=== PATIENT | male | born 1960 | race Caucasian/White ===

== ENCOUNTER 2016-11-22 10:27 | Emergency (ER) | payer MEDICARE ==
[2016-11-22 11:08] LABS: BASOPHILS 0.6 % (0-2); EOSINOPHILS 1.4 % (0-7); HEMATOCRIT 45.5 % (42.0-54.0); HEMOGLOBIN 16.4 g/dL (13.5-17.5); IMMATURE GRANULOCYTES 0.5 % (0-5); MCH 31.2 pg (26.0-34.0); MCV 86.5 fL (80.0-100.0); MONOCYTES 10.5 % (2-11); PLATELET COUNT 202 10x3/uL (130-400); RBC 5.26 10x6/uL (4.20-6.10); RDW 13.2 % (11.5-14.5); WBC 6.7 10x3/uL (4.8-10.8)
[2016-11-22 11:12] LABS: ALBUMIN 3.6 g/dL (3.4-5.0); ALKALINE PHOSPHATASE 103 U/L (46-116); ALT (SGPT) 53 U/L (10-68); BILIRUBIN - TOTAL 1.12 mg/dL (0.2-1.3); CALC OSMOLALITY 278 mosm/kg (275-300); CALCIUM 8.8 mg/dL (8.5-10.1); CARBON DIOXIDE 28.3 mmol/L (21.0-32.0); CHLORIDE - SERUM 104 mmol/L (98-107); CREATININE - SERUM 1.1 mg/dL (0.6-1.3); GLUCOSE 98 mg/dL (74-106); POTASSIUM - SERUM 3.9 mmol/L (3.5-5.1); PROTEIN - SERUM 7.1 g/dL (6.4-8.2); SODIUM 140 mmol/L (136-145); UREA NITROGEN 13 mg/dL (7-18); eGFR NON AFRICAN AMERICAN 73 mL/min (90-120)
[2016-11-22 11:23] LABS: CKMB 1.2 U/L (0.0-3.6); CREATINE KINASE 203 UL (21-232)
[2016-11-22 11:30] LABS: TROPONIN-I < 0.017 ng/mL (0.000-0.060)
== END 2016-11-22 12:36 | disposition home or self-care (01) ==
LOC: D.ER 10:27
PROVIDERS: Emergency Medicine
DX: R07.9 Chest pain, unspecified (principal)

== ENCOUNTER 2016-12-24 10:53 | Outpatient (CLI) | payer MEDICARE ==
--- NOTE | ~2016-12-24 | HEMODYNAMI ---
PATIENT:MARANDA GRANT BRANDEE MEDICAL RECORD: [id number] : 56 LOCATION:MINI ADMISSION DATE: 12/24/16 Generatedon:12/24/201612:33 Patient name: MARANDA GRANT Patient #: [id number] SSN: DO B: 1960 Date of study: 12/24/2016 Page: Of Hemodynamic Procedure Report Patient Data Patient Demographics Procedure consent was obtained First Name: MARANDA Gender: Male Last Name: RUDY : 1960 [facility] Initial: BRANDEE Age: 56 year(s) Patient #: [id number] Race: Additional ID: [id number] Contact details Address: [address] [place] [address] State: [place] City: [facility] Zip code: [address] Past Medical History Allergies: No known allergies Admission Admission Data Admission Date: 12/24/2016 Admission Time: 10:53 Arrival Date: 12/24/2016 Arrival Time: 13:00 Admit Source: Other Insurance Payor: Medicare Height (in.): 67 BSA: 2.1 (m2) Height (cm.): 170.18 BMI: 34.14 (kg/m2) Weight (lbs.): 218 Weight (kg.): 98.88 Lab Results Lab Result Date: 12/24/2016 Lab Result Time: 0:00 Biochemistry Name Units Result Min Max BUN mg/dl 12 --(-*--)-- 7 18 Creatinine mg/dl 1.1 --(--*-)-- 0.6 1.3 Procedure Procedure Types Cath Procedure Diagnostic Procedure C [facility] w/Coronaries Miscellaneous Procedures Moderate Sedation up to 15 minutes Procedure Description Procedure Date Procedure Date: 12/24/2016 Procedure Start Time: 12:15 Procedure End Time: 12:30 Procedure Staff Name Function Prem Vargas MD Performing Physician Isabelle Moreno RT Scrub Jass Conte RN Nurse Massiel Lima RT Monitor Procedure Data Cath Procedure Fluoroscopy Diagnostic fluoroscopy Total fluoroscopy Time: 4.7 time: 4.7 min min Diagnostic fluoroscopy Total fluoroscopy dose: 644 dose: 644 mGy mGy Contrast Material Contrast Material Type Amount (ml) Isovue 300 64 Entry Location Entry Primary Successful Side Size Upsize Upsize Entry Closure Ballard ccessful Closure Location (Fr) 1 (Fr) 2 (Fr) Remarks Device Remarks Radial Right 6 Fr Mechanical tr artery Short Compression Femoral Right 5 Fr Exoseal artery Estimated blood loss: 10 ml Diagnostic catheters Device Type Used For End Catheter Placement Diagnostic Terumo 5Fr Procedure Fulton 110cm catheter Cordis 5Fr JL 4.0 Procedure Catheter (MP) Cordis 5Fr 3DRC Catheter Procedure (MP) Procedure Complications No complications Procedure Medications Medication Administration Route Dosage 0.9% NaCl I.V. 100 ml/hr Oxygen NC 2 l/min Heparin Flush Bag added to field 2 bags (1000units/500ml NS) Radial Cocktail added to field 1 syringe (Verapomil 2mg/Nitro 400mcg/Heparin 1500units) Versed I.V. 2 mg Fentanyl I.V. 100 mcg Versed I.V. 1 mg Radial Cocktail I.A. 1 syringe (Verapomil 2mg/Nitro 400mcg/Heparin 1500units) Versed I.V. 1 mg Hemodynamics Rest BSA: 2.1 (m2) O2 Consumption: Estimated: 248.31 (ml/min) O2 Consumption indexed: Estimated:118.24 (ml/min/m) Heart Rate: 71 (bpm) Pressure Samples Time Site Value (mmHg) Purpose Heart Use Rate(bpm) 12:19 AO 104/14(47) Snapshot 91 12:19 LV 98/9,11 Snapshot 86 12:20 LV 45/-35,-5 EDP 93 Gradients Valve Time Site Site Mean SEP/DFP Peak To Heart Use 1 2 (mmHg) (sec/min) Peak Rate (mmHg) (bpm) Aortic 12:20 LV AO 94 Snapshots Pre Cath Intra NCS Post Cath Vital Signs Time Heart Resp SPO2 etCO2 NIBP (mmHg) Rhythm Pain Sedation Rate (ipm) (%) (mmHg) Status Level (bpm) 12:03:22 66 18 100 34.7 141/90(120) NSR 0 (11) 10(A) , No pain 12:07:38 64 17 100 31.7 137/85(120) NSR 0 (11) 10(A) , No pain 12:11:52 69 18 100 35.5 142/83(117) NSR 0 (11) 10(A) , No pain 12:16:06 98 14 95 0 125/84(98) NSR 0 (11) 10(A) , No pain 12:20:12 92 15 95 0 116/72(100) NSR 0 (11) 10(A) , No pain 12:24:22 77 16 96 34.7 119/74(100) NSR 0 (11) 10(A) , No pain 12:28:30 89 13 95 35.5 114/73(98) NSR 0 (11) 10(A) , No pain Medications Time Medication Route Dose Verified Delivered Reason Notes Effectiveness by by 12:04:33 0.9% NaCl I.V. 100 Ollie Ollie Per ml/hr Shalini Loya physician RN RN 12:04:51 Oxygen NC 2 l/min Ollie Ollie Per Shalini Loya physician RN RN 12:05:05 Heparin Flush added 2 bags Ollie Ollie used for Bag to Shalini Loya procedure (1000units/500ml field YUVAL BARAKAT NS) 12:05:35 Radial Cocktail added 1 Ollie Ollie for (Verapomil to syringe Shalini Loya vasodilation 2mg/Nitro field YUVAL BARAKAT 400mcg/Heparin 1500units) 12:14:14 Versed I.V. 2 mg Ollie Ollie for sedation Shalini Loya RN, RN 12:14:25 Fentanyl I.V. 100 mcg Ollie Ollie for sedation Shalini Loya RN, RN 12:15:59 Versed I.V. 1 mg Ollie Ollie for sedation Shalini Loya RN, RN 12:16:31 Radial Cocktail I.A. 1 Ollie Prem for (Verapomil syringe Shalini James John vasodilation 2mg/Nitro YUVAL MUNIZ 400mcg/Heparin 1500units) 12:28:05 Versed I.V. 1 mg Ollie Ollie for sedation Shalini Loya RN lab director Log Time Note 11:42:19 Informed consent obtained and on chart 11:42:22 Diagnostic Cath Status : Elective 11:44:16 Admit Source: Other 11:44:21 Patient Height : 67 inches 11:44:32 Patient Weight : 218 lbs 11:44:32 Insurance Payor : Medicare 11:44:35 Arrival Date: 12/24/2016 1:00:00 PM 11:46:51 Lab Result : Creatinine 1.1 mg/dl 11:46:51 Lab Result : BUN 12 mg/dl 12:02:19 Vital chart was started 12:04:33 0.9% NaCl 100 ml/hr I.V. was administered by Ollie Loya RN; Per physician; 12:04:51 Oxygen 2 l/min NC was administered by Ollie Loya RN; Per physician; 12:05:05 Heparin Flush Bag (1000units/500ml NS) 2 bags added to field was administered by Ollie Loya RN; used for procedure; 12:05:35 Radial Cocktail (Verapomil 2mg/Nitro 400mcg/Heparin 1500units) 1 syringe added to field was administered by Ollie Loya RN; for vasodilation; 12:08:37 Jass Conte RN sent for patient. Start room use. 12:08:38 Time tracking: Regular hours 12:08:44 Plan of Care:Hemodynamics will remain stable., Cardiac rhythm will remain stable., Comfort level will be maintained., Respiratory function will remain adequate., Patient/ family verbilizes understanding of procedure., Procedure tolerated without complication., Recovers from procedure without complications.. 12:08:58 Patient received from Pre/Post Procedure Room to [facility] 2 Alert and oriented. Tansferred to table in Supine position. 12:09:04 Warm blankets applied, and valentín hugger turned on for patient comfort. 12:09:07 Correct patient and procedure confirmed by team. 12:09:10 ECG and BP/O2 sat monitors applied to patient. 12:09:11 Baseline sample Acquired. 12:09:15 Rhythm: sinus rhythm 12:09:17 Full Disclosure recording started 12:09:33 H&P Date Dictated: 11/25/2016 Within 30 days and on chart., H&P Addendum completed by physician on day of procedure. (MUST COMPLETE FOR ALL OUTPATIENTS). 12:09:34 Pre-procedure instructions explained to patient. 12:09:38 Family in waiting room. 12:09:39 Patient NPO since Midnight. 12:09:50 Patient allergic to No known allergies 12:10:05 Is patient on blood thinner?No 12:10:08 Patient diabetic? No. 12:10:13 Snore? Yes 12:10:15 Sleep apnea? No 12:10:19 Dentures? No ? 12:10:24 Patient pain scale 0/10 ?. 12:10:29 IV patent on arrival in left hand with 0.9% NaCl at [facility]. 12:10:31 Lab results completed and on chart. 12:10:35 Right Radial & Right Groin area was prepped with chlora-prep and draped in sterile fashion 12:10:36 Alarms reviewed by R. N. 12:10:36 Sharps counted by scrub and verified by R.N. 12:10:37 Physician paged 12:10:39 Physician arrived 12:10:40 --------ALL STOP TIME OUT------ 12:10:40 Final Timeout: patient, procedure, and site verified with staff and physician. All members of the team are in agreement. 12:10:44 Right Radial & Right Groin site verified by team. 12:10:49 Sedation plan: IV Moderate Sedation Versed, Fentanyl 12:10:57 Use device set Radial Dx 12:11:01 Acist Syringe opened to sterile field. 12:11:02 Medline Cath Pack opened to sterile field. 12:11:02 Bag Decanter opened to sterile field. 12:11:03 Terumo 6Fr Slender Glidesheath opened to sterile field. 12:11:03 St Artie 260cm J .035 wire opened to sterile field. 12:11:03 Acist Hand Control opened to sterile field. 12:11:04 Acist Manifold opened to sterile field. 12:11:04 Tegaderm 4 x 4 opened to sterile field. 12:11:05 MBrace Wrist Support opened to sterile field. 12:14:14 Versed 2 mg I.V. was administered by Ollie Loya RN; for sedation; 12:14:25 Fentanyl 100 mcg I.V. was administered by Ollie Loya RN; for sedation; 12:14:47 Zero performed for pressure channel P1 12:14:56 Procedure started. 12:15:09 Local anesthetic to right radial artery with Lidocaine 2% by Prem Vargas MD.INITIAL ACCESS ONLY 12:15:19 A 6 Fr Short sheath was inserted into the Right Radial artery 12:15:59 Versed 1 mg I.V. was administered by Ollie Loya RN; for sedation; 12:16:09 A Diagnostic Terumo 5Fr Fulton 110cm catheter was advanced over the wire and used for Procedure. 12:16:31 Radial Cocktail (Verapomil 2mg/Nitro 400mcg/Heparin 1500units) 1 syringe I.A. was administered by Prem Vargas MD; for vasodilation; 12:18:53 Terumo ANGLE 260cm glide wire opened to sterile field. 12:19:50 LV angiography performed. 12:21:49 Use device set Multipack Set 12:22:07 Catheter removed. 12:22:26 Local anesthetic to right femoral artery with Lidocaine 2% by Prem Vargas MD.ADDITIONAL ACCESS 12:22:36 A 5 Fr sheath was inserted into the Right Femoral artery 12:22:43 Terumo 5Fr Buffalo Sheath opened to sterile field. 12:22:44 Diagnostic Infinity 5Fr Multipack catheter opened to sterile field. 12:23:26 A Cordis 5Fr JL 4.0 Catheter (MP) was advanced over the wire and used for Procedure. 12:24:50 Catheter removed. 12:25:01 A Cordis 5Fr 3DRC Catheter (MP) was advanced over the wire and used for Procedure. 12:26:36 Terumo TR Band Standard opened to sterile field. 12:26:37 Cordis 5Fr Exoseal opened to sterile field. 12:26:43 Catheter removed. 12:27:01 Sheath removed intact; hemostasis achieved with Exoseal to the Right Femoral artery. 12:27:17 Sheath removed intact; hemostasis achieved with Mechanical Compression to the Right Radial artery. 12:27:27 Procedure ended.(Physican Out) 12:27:38 Fluoroscopy time 04.70 minutes. 12::43 Fluoroscopy dose: 644 mGy 12:27:43 Flurop Dose total: 644 12:27:47 Contrast amount:Isovue 300 64ml. 12:28:05 Versed 1 mg I.V. was administered by Ollie Loya RN; for sedation; 12:29:25 Sharps counted by scrub and verified by R.N. 12:29:31 TR band inflated with 10cc of air. 12::33 Insertion/operative site no bleeding no hematoma. 12:29:38 Post right femoral artery:stable 12:29:40 Post Procedure Pulses reassessed and unchanged 12::45 Post-procedure physical assessment completed. ASA score P 2 - A patient with mild systemic disease as per Prem Vargas MD. 12:29:49 Post procedure rhythm: unchanged. 12:29:51 Estimated blood loss: 10 ml 12:30:04 Procedure type changed to Cath procedure, Diagnostic procedure, LHC, LHC w/Coronaries, Miscellaneous Procedures, Moderate Sedation up to 15 minutes 12:30:05 Procedure and supply charges have been captured, reviewed, submitted and are correct. 12:30:31 Procedure Complication : No complications 12:30:34 Vital chart was stopped 12:30:35 See physician's report for complete and final results. 12:30:37 Report given to Pre/Post Procedure Room. 12:30:39 Patient transfered to Pre/Post Procedure Room with Stretcher. 12:30:41 Procedure ended. 12:30:41 Full Disclosure recording stopped 12::45 End room use (Document Last) 12:32:01 End room use (Document Last) Device Usage Item Name Manufacture Quantity Catalog Hospital Part Current Minimal Lot# / Number Charge Number Stock Stock Serial# Code Acist Acist 1 48982 653164 296606 076604 20 Syringe Medical [employer] Inc Medline Cardinal 1 [id number] 767260 68941 339896 5 Cath Pack Health Bag Microtek 1 2001S 782101 62475 343209 5 [employer] Terumo 6Fr Terumo 1 [id number] 292557 974820 756772 [address] Artie St Artie 1 014035 121728 386644 140268 30 260cm J .035 wire Acist Hand Acist 1 94760 669701 604986 347295 5 Control Medical Systems Inc Acist Acist 1 04436 948958 880193 823082 5 Manifold Medical Systems Inc Tegaderm 4 3M 1 1626W 925017 355393 198339 5 x 4 MBrace Advanced 1 140-0250-00 486333 35809 617576 5 Wrist Vascular Support Dynamics Diagnostic Terumo 1 40-2318 862073 563886 595681 5 Terumo 5Fr Fulton 110cm catheter Terumo Terumo 1 [id number] 606692 116497 336858 5 ANGLE 260cm glide wire Terumo 5Fr Terumo 1 QOW101 872413 302310 933531 40 Buffalo Sheath Diagnostic Cardinal 1 [id number] 713352 82691 166372 30 Infinity Health 5Fr Multipack catheter Cordis 5Fr Cardinal 1 053576 5 JL 4.0 Health Catheter (MP) Cordis 5Fr Cardinal 1 070009 5 3DRC Health Catheter (MP) Terumo TR Terumo 1 [id number] 600251 550799 045243 40 Band Standard Cordis 5Fr Cardinal 1 EX500 054783 688195 350506 10 [facility] Signature Audit [place] Stage Time Signature Unsigned Intra-Procedure 12/24/2016 Massiel Lima 12:33:43 PM RT(R) Signatures Monitor : Massiel Lima Signature : RT Date : Time : [place] [id number] [place] [address]
[2016-12-24] MEDS ORDERED: CLARITIN-D1 TAB.SR . PO (11:10)
[2016-12-24] MEDS ORDERED: PRILOSEC10 M1 PO (11:11)
[2016-12-24 11:14] VITALS: BP 134/82; BMI 33.3
[2016-12-24 11:26] LABS: BASOPHILS 0.8 % (0-2); EOSINOPHILS 1.8 % (0-7); HEMATOCRIT 44.1 % (42.0-54.0); HEMOGLOBIN 15.8 g/dL (13.5-17.5); IMMATURE GRANULOCYTES 0.3 % (0-5); LYMPHOCYTES 22.2 % (15-50); MCH 30.9 pg (26.0-34.0); MCHC 35.8 g/dL (31.0-37.0); MCV 86.1 fL (80.0-100.0); MEAN PLATELET VOLUME 10.5 fL (7.4-10.4); NEUTROPHILS 63.9 % (40-80); PLATELET COUNT 203 10x3/uL (130-400); RBC 5.12 10x6/uL (4.20-6.10); RDW 12.7 % (11.5-14.5); WBC 7.4 10x3/uL (4.8-10.8)
[2016-12-24 11:35] LABS: ANION GAP 13.8 mmol/L (8-16); CALCIUM 8.6 mg/dL (8.5-10.1); CARBON DIOXIDE 27.9 mmol/L (21.0-32.0); CREATININE - SERUM 1.1 mg/dL (0.6-1.3); POTASSIUM - SERUM 3.7 mmol/L (3.5-5.1)
--- NOTE | 2016-12-24 13:16 | NUR ---
1305 LYING FLAT, 2L NC IN PLACE WHILE SLEEPING. NSR RATE 72 W NO C/O CHEST PAIN. PULSES PALP X4. R WRIST TR BAND C/D/I W NO HEMATOMA OR BLEEDING. R GROIN 5F EXOSEAL C/D/I W NO HEMOTOMA OR BLEEDING. AT BEDSIDE.
--- NOTE | 2016-12-24 14:06 | NUR ---
1400 ELEVATED HOB, 3CC AIR REMOVED FROM TR BAND R WRIST. WILL MONITOR FOR BLEEDING. EATING TURKEY SANDWICH AND SIPPING SODA. AT SIDE.
--- NOTE | 2016-12-24 14:06 | NUR ---
2500 TALKING WITH AT BEDSIDE. ROOM AIR, NSR W NO C/O CHEST PAIN. R WRIST AND R GROIN REMAIN C/D/I. DENIES NEEDS AT THIS TIME.
--- NOTE | 2016-12-24 14:16 | NUR ---
1CC AIR REMOVED FROM R WRIST TR BAND. PIV REMOVED FROM L FOREARM WITH BANDAID APPLIED. UP TO BEDSIDE TO DRESS WITH ASSIST FROM .
--- NOTE | 2016-12-24 14:34 | NUR ---
TR BAND WEANED, 2X2 AND TEGADERM APPLIED. BRACE RE-PLACED. AMBULATED TO BATHROOM TO VOID. R GROIN REMAINS C/D/I W NO HEMATOMA OR BLEEDING. D/C INSTRUCTIONS DISCUSSED WITH PATIENT AND AT BEDSIDE. WHEELED OUT VIA WHEELCHAIR BY CATH TEAM.
--- NOTE | 2016-12-28 13:30 | OP ---
PATIENT NAME: MARANDA GRANT MEDICAL RECORD: [id number] :56 LOCATION:D.CAT ADMISSION DATE: SURGEON: ESVIN LAO MD DATE OF OPERATION: 12/24/2016 PROCEDURE: Left heart catheterization, selective coronary angiography, and right femoral approach.. CATHETERS: A 5-Yemeni sheath, 5/4 left and right Martin, 5/4 pig. The procedure was well tolerated. The patient returned to edouard, sheath removed. ExoSeal device was placed. FINDINGS: Left ventriculography in 30-degree DALTON view: Normal wall motion, normal systolic function. CORONARY ANATOMY: LEFT MAIN: Left main is free of disease. LAD: Free of disease in the diagonal system. CIRCUMFLEX: Free of disease in the marginal system. RIGHT CORONARY ARTERY: Dominant artery, gives rise to PDA, free of disease. IMPRESSION: Normal systolic function. Normal coronary anatomy. TRANSINT:[id number] Voice Confirmation ID: [id number] DOCUMENT ID: [id number] ESVIN LAO MD at 1330 CC: [id number] DICTATION DATE: 12/24/16 1234 CREDIT UNION TELLER: 12/24/16 1254 DEP CLI 12/24/16 [facility] [address] [place] [address]
== END 2016-12-24 14:37 | disposition home or self-care (01) ==
LOC: D.CATH 10:53
PROVIDERS: Internal Medicine Interventional Cardiology
DX: I20.9 Angina pectoris, unspecified (principal); R94.30 Abnormal result of cardiovascular function study, unspecified; E78.5 Hyperlipidemia, unspecified; Z01.812 Encounter for preprocedural laboratory examination

== ENCOUNTER 2017-03-01 11:38 | Emergency (ER) | payer MEDICARE ==
[~2017-03-01 11:38] MED LIST: CLARITIN-D1 TAB.SR . PO; PRILOSEC10 M1 PO
== END 2017-03-01 15:05 ==
LOC: D.ER 11:38
DX: J20.9 Acute bronchitis, unspecified (principal); J06.9 Acute upper respiratory infection, unspecified

== ENCOUNTER 2017-07-02 13:48 | Emergency (ER) | payer MEDICARE | END 2017-07-02 17:09 | disposition home or self-care (01) | LOC: D.ER 13:48 | DX: L02.512 Cutaneous abscess of left hand (principal) ==

== ENCOUNTER 2018-02-11 13:11 | Day surgery (SDC) | payer MEDICARE ==
[~2018-02-11] VITALS: Ht 170.2 cm; Wt 95.5 kg
[2018-02-11 13:40] LABS: APPEARANCE CLEAR (CLEAR); BILIRUBIN NEGATIVE (NEGATIVE); COLOR YELLOW (YELLOW); GLUCOSE NEGATIVE (NEGATIVE); KETONE NEGATIVE (NEGATIVE); NITRITE NEGATIVE (NEGATIVE); PROTEIN NEGATIVE (NEGATIVE); SPECIFIC GRAVITY 1.005 (1.005-1.020); UROBILINOGEN NORMAL (NORMAL)
[2018-02-11 13:42] LABS: BASOPHILS 0.1 % (0-2); EOSINOPHILS 0.1 % (0-7); HEMATOCRIT 42.9 % (42.0-54.0); HEMOGLOBIN 15.8 g/dL (13.5-17.5); IMMATURE GRANULOCYTES 0.2 % (0-5); LYMPHOCYTES 4.3 % (15-50); MCH 31.5 pg (26.0-34.0); MCHC 36.8 g/dL (31.0-37.0); MCV 85.5 fL (80.0-100.0); MEAN PLATELET VOLUME 10.7 fL (7.4-10.4); MONOCYTES 9.7 % (2-11); NEUTROPHILS 85.6 % (40-80); PLATELET COUNT 178 10x3/uL (130-400); RBC 5.02 10x6/uL (4.20-6.10); RDW 13.1 % (11.5-14.5); WBC 17.7 10x3/uL (4.8-10.8)
[2018-02-11 13:59] LABS: ALBUMIN 3.7 g/dL (3.4-5.0); ANION GAP 14.2 mmol/L (8-16); BILIRUBIN - TOTAL 1.16 mg/dL (0.2-1.3); CALCIUM 8.5 mg/dL (8.5-10.1); CARBON DIOXIDE 24.4 mmol/L (21.0-32.0); CREATININE - SERUM 1.2 mg/dL (0.6-1.3); POTASSIUM - SERUM 3.6 mmol/L (3.5-5.1); PROTEIN - SERUM 6.9 g/dL (6.4-8.2)
[2018-02-11 17:24] VITALS: BP 114/63; Ht 170.2 cm; Wt 95.5 kg
[2018-02-11 20:28] VITALS: BP 107/71
[2018-02-11 23:54] VITALS: BP 116/68
[2018-02-12 04:32] VITALS: BP 104/52
[2018-02-12 09:00] VITALS: BP 112/67
[2018-02-12 12:30] VITALS: BP 113/70
[2018-02-12] MEDS ORDERED: NORCO 10-325 TA1 TAB PO (14:13)
[2018-02-12 16:17] VITALS: BP 105/63
[2018-02-12 20:27] VITALS: BP 112/65
[2018-02-12 23:49] VITALS: BP 117/70
[2018-02-13 04:16] VITALS: BP 149/56
--- NOTE | 2018-02-13 09:19 | OP ---
PATIENT NAME: MARANDA GRANT MEDICAL RECORD: [id number] :56 LOCATION:D.MS [id number] ADMISSION DATE:02/11/18 SURGEON: MATTHEW WHITESIDE MD DATE OF OPERATION: 02/12/2018 PREOPERATIVE DIAGNOSIS: Acute appendicitis with localized peritonitis. POSTOPERATIVE DIAGNOSIS: Acute appendicitis with localized peritonitis. PROCEDURE: Laparoscopic appendectomy. SURGEON: Matthew Whiteside MD REPORT OF PROCEDURE: The patient's abdomen was prepped and draped in sterile fashion. A cutdown was made in the midline just above the umbilicus. Electrocautery was used to dissect through the subcutaneous tissues. Vicryls #0 were placed in the fascia bilaterally and the fascia was incised with #15 blade. I then bluntly entered the peritoneal cavity, and with finger dissection, I took down some of the omental adhesions that were present to the anterior abdominal wall. A 12-mm Lainey trocar was then inserted and the abdomen was insufflated. Under direct visualization, a 5-mm trocar was placed in the left lower quadrant and another was placed in the suprapubic region. The patient's appendix was visualized and noted to be inflamed. There was no sign of any purulence and no signs of any gangrene or perforation. The appendix was very friable, especially on the fatty tissue. Everytime I tried to grab the fatty tissue, it would break, which led to some bleeding. I eventually was able to dissect the appendix free from its surrounding attachments and it was transected at its base using a 45 blue load Endo-EDISON stapler. The bleeding vessel was found and clips were placed proximally and distally and this discontinued any bleeding from the appendiceal artery. The area was irrigated out with normal saline. At this point, the appendix had been placed into an EndoCatch bag and this was removed through the midline incision. The ports and insufflation were then removed. The midline incision was then closed with interrupted #0 Vicryls times 3. The wounds were irrigated out with normal saline and infused with 10 mL of 0.25% Marcaine with epinephrine. The skin incisions were closed with subcutaneous 5-0 Monocryl and dressed appropriately. COMPLICATIONS: None. CONDITION: Stable. ANESTHESIA: General endotracheal and local. BLOOD LOSS: 30 mL. TRANSINT:[id number] Voice Confirmation ID: [id number] DOCUMENT ID: [id number] OPERATIVE REPORT [id number] MARANDA GRANT CHRISTIAN MD at 0919 CC: [id number] DICTATION DATE: 02/12/181416 INFORMATICS APPLICATION ANALYST: 02/12/18 192 ADM IN [facility] [address] [place] [address]
[2018-02-13 09:31] VITALS: BP 109/62
== END 2018-02-13 11:29 | disposition home or self-care (01) ==
LOC: OBSVTIME → D.ER 13:11 → D.OPS 13:11 → D.ER 15:15 → D.EDHOLD 15:15 → OBSVTIME 15:15 → D.MS 15:15 → D.EDHOLD 16:10 → D.MS 16:10 → D.ER 16:35 → EDSTATUS 02-12 09:45 → D.OPS 02-13 11:29 → D.MS 02-13 11:29
PROVIDERS: Emergency Medicine
DX: K35.80 Unspecified acute appendicitis (principal); I10 Essential (primary) hypertension; R00.0 Tachycardia, unspecified; Z01.812 Encounter for preprocedural laboratory examination

== ENCOUNTER → 2018-03-30 09:58 | Outpatient (CLI) | payer MEDICARE ==
[2018-02-11 17:24] VITALS: BMI 32.9
[~2018-03-30 09:58] MED LIST changes: +NORCO 10-325 TA1 TAB PO
== END | disposition home or self-care (01) ==
LOC: D.MRI 09:58
DX: S83.281A Other tear of lateral meniscus, current injury, right knee, initial encounter (principal); X58.XXXA Exposure to other specified factors, initial encounter

== ENCOUNTER → 2018-04-04 14:54 | Outpatient (CLI) | payer MEDICARE ==
[2018-02-11 17:24] VITALS: BMI 32.9
== END | disposition home or self-care (01) ==
LOC: D.MRI 14:00
DX: S83.281A Other tear of lateral meniscus, current injury, right knee, initial encounter (principal); X58.XXXA Exposure to other specified factors, initial encounter

== ENCOUNTER 2019-05-28 13:04 | Emergency (ER) | payer MEDICARE ==
[~2019-05-28] VITALS: Ht 170.2 cm; Wt 96.4 kg
[2019-05-28 13:14] VITALS: Ht 170.2 cm; Wt 96.4 kg
[2019-05-28 14:04] VITALS: BP 128/68
== END 2019-05-28 14:04 | disposition home or self-care (01) ==
LOC: D.ER 13:04
DX: T63.001A Toxic effect of unspecified snake venom, accidental (unintentional), initial encounter (principal); K21.9 Gastro-esophageal reflux disease without esophagitis